=== PATIENT | male | born 1950 | race Caucasian/White ===

== ENCOUNTER 2020-07-16 09:15 | Outpatient (RCR) | payer MEDICARE, MEDICAID, SELFPAY | END 2020-07-31 12:00 | disposition home or self-care (01) | LOC: HO.WCC 09:15 | PROVIDERS: Visit Provider Surgery | DX: E11.621 Type 2 diabetes mellitus with foot ulcer (principal); E11.51 Type 2 diabetes mellitus with diabetic peripheral angiopathy without gangrene; I70.235 Atherosclerosis of native arteries of right leg with ulceration of other part of foot; L97.512 Non-pressure chronic ulcer of other part of right foot with fat layer exposed; E11.69 Type 2 diabetes mellitus with other specified complication; M86.471 Chronic osteomyelitis with draining sinus, right ankle and foot; I70.202 Unspecified atherosclerosis of native arteries of extremities, left leg; Z79.84 Long term (current) use of oral hypoglycemic drugs; Z79.82 Long term (current) use of aspirin; Z79.2 Long term (current) use of antibiotics | CPT/HCPCS: 99183; 99212 ==

== ENCOUNTER → 2020-07-20 14:06 | Outpatient (BNVA) | payer MEDICARE, SELFPAY | PROVIDERS: PCP Internal Medicine; Visit Provider Internal Medicine | DX: M86.9 Osteomyelitis, unspecified (principal) | CPT/HCPCS: 99212 ==

== ENCOUNTER 2020-08-06 12:50 | Outpatient (REF) | payer MEDICARE, SELFPAY ==
--- NOTE | 2020-08-06 16:28 | MHC.AU.P13 ---
Adult Audiological Evaluation Date of Visit: 08/06/20 Reason for Appointment: Decreased hearing. Does patient feel they have a hearing loss?: Yes If Yes, Which Ear?: Both Ears When Was Hearing Difficulty First Noticed?: 2019 Has hearing been tested previously?: No Hearing Handicap Inventory Does a hearing problem cause you to feel embarrassed when meeting new people?: Sometimes Does a hearing problem cause you to feel frustrated when talking to members of your family?: Sometimes Do you have difficulty when someone speaks in a whisper?: Sometimes Do you feel handicapped by a hearing problem?: Sometimes Does a hearing problem cause you difficulty when visiting friends, relatives, or neighbors?: Sometimes Does a hearing problem cause you to attend uatsdin service services less often than you would like?: No Does a hearing problem cause you to have arguments with family members?: Sometimes Does a hearing problem cause you difficulty when listening to TV or radio?: Yes Do you feel that any difficult with your hearing limits or hampers your personal or social life?: Sometimes Does a hearing problem cause you difficulty when in a restaurants with relatives or friends?: Sometimes HHIE SCORE: 20 Based on HHIE score, patient has: Mild to moderate perceived hearing handicap Ear History: Family History of Hearing Loss?: Yes: Brothers History of Ear Wax Buildup: Both Ears Medical History: Medical History: Cancer, Diabetes, Dizziness or Unsteadiness, High Blood Pressure, Vascular Problems Medical History: Diagnosed this month with metastatic cancer. Still undergoing testing to determine type and treatment plan. Has had stents placed. Treated for a bone infection at [facility] [place] [facility] [place]. Allergies: Codeine Otoscopy: Right Ear: Totally occluding cerumen. Attempted removal but couldn't complete Left Ear: Totally occluding cerumen. Attempted removal but couldn't complete Tympanometry: Right Ear: Non-compliant Middle Ear System (Type B) Left Ear: Normal Middle Ear System (Type A) Hearing Evaluation: Transducer(s) Used: Circumaural Headphones, Bone Conduction Method: Conventional Audiometry Stimuli Used: Pure Tones Right Ear: Description of Hearing: Moderately severe mixed hearing loss from 250-1000 Hz, sloping to a severe sensorineural hearing loss at 2000 Hz, and a profound hearing loss from 4694-9454 Hz. Left Ear: Description of Hearing: Normal hearing from 250-500 Hz, sloping to a mild sensorineural hearing loss at 1000 Hz, a moderate sensorineural hearing loss at 1500 Hz, a moderately severe sensorineural hearing loss 2000 Hz, and a severe sensorineural hearing loss at 4441-5506 Hz. Speech Recognition Threshold (SRT): Method Used: Not performed at today's visit due to time constraints. Word Discrimination: Method: Not performed at today's visit due to time constraints. Recommendations: Recommendations: Follow-up with physician for cerumen removal. Recommendations (Other): A referral to ENT is recommended to complete cerumen removal. An updated audiological evaluation is recommended once cerumen has been fully removed. Given the sensorineural component to his hearing loss, he would like benefit from binaural amplification. Diagnosis: Primary Diagnosis: H90.3 Bilateral Sensorineural Hearing Loss Secondary Diagnosis: H61.23 Impacted Cerumen, Bilateral Services Performed: Services Performed: Pure Tone- Air & Bone (CPT 39801) Tympanometry (CPT 57798) Signature: Provider: Jaxon Woo, CCC-A
== END 2020-08-06 12:51 | disposition home or self-care (01) ==
LOC: HO.SH 12:50
PROVIDERS: Visit Provider Internal Medicine Sports Medicine
DX: H90.3 Sensorineural hearing loss, bilateral (principal); H61.23 Impacted cerumen, bilateral
CPT/HCPCS: 92553; 92567